=== PATIENT | female | born 1975 | race Hispanic/Latino ===

== ENCOUNTER 2020-12-05 14:38 | Observation (INO) | payer OTHER ==
[2020-12-05] VITALS (8 sets, daily range): BP systolic 120–146; BP diastolic 67–86
[~2020-12-05] VITALS: Ht 157.5 cm; Wt 63.4 kg
[2020-12-05] MEDS ORDERED: 0.9%NACL 1000ML 1,000 ML IV ONE (15:00)
[2020-12-05 15:09] LABS: BASOPHILS % (AUTO) 0.3 % (0.0-5.0); EOSINOPHILS % (AUTO) 0.2 % (0.0-8.0); HEMATOCRIT 35.4 % (36-48); MEAN CORPUSCULAR HEMOGLOBIN 33.4 pg (27.0-33.0); MEAN CORPUSCULAR VOLUME 95.4 fL (79-99); MONOCYTES % (AUTO) 7.5 % (3.0-13.0); NEUTROPHILS % (AUTO) 78.6 % (40.0-77.0); PLATELET COUNT (AUTO) 224 K/uL (130-400); RED BLOOD CELL COUNT(AUTO) 3.71 MIL/uL (4.00-5.50); RED CELL DISTRIBUTION WIDTH 12.1 % (11.0-15.5); WHITE BLOOD COUNT (AUTO) 11.3 K/uL (4.8-10.8)
[2020-12-05 15:32] LABS: CREATININE 0.8 mg/dL (0.5-1.5); POTASSIUM 4.5 mmol/L (3.5-5.1)
[2020-12-05 15:43] LABS: ALBUMIN 3.8 g/dL (3.5-5.0); BILIRUBIN,TOTAL 0.3 mg/dL (0.2-1.0); TOTAL PROTEIN, SERUM 7.2 g/dL (6.0-8.3); TROPONIN I 0.11 ng/mL (0.00-0.06)
[2020-12-05 15:53] LABS: APPEARANCE,URINE Clear (CLEAR); BILIRUBIN,URINE Negative (NEGATIVE); COLOR,URINE Yellow (YELLOW); GLUCOSE, URINE (UA) TRACE mg/dL (NEGATIVE); KETONES,URINE Negative (NEGATIVE); LEUKOCYTE ESTERASE ,URINE Negative (NEGATIVE); NITRATE,URINE Negative (NEGATIVE); OCCULT BLOOD,URINE Negative (NEGATIVE); PH,URINE 6.5 (5.0-8.0); PROTEIN,URINE Negative (NEGATIVE); UROBILINOGEN,URINE 0.2 mg/dL (0.2-1.0)
[2020-12-05 15:55] LABS: HCG,QUAL RESULT NEGATIVE (NEGATIVE)
[2020-12-05] MEDS ORDERED: NITROGLYCERIN 1GM OINT 1 INCH/1GM TD ONE (16:00)
[2020-12-05] MEDS ORDERED: ASPIRIN 325MG TAB PO ONE (16:00)
[2020-12-05 16:05] LABS: BACTERIA,URINE Rare /HPF (None Seen); RBC,URINE 0-1 /HPF (0-1); SQUAMOUS EPITHELIAL CELL,UR Rare /HPF (0-2); WBC,URINE 0-1 /HPF (0-1)
[2020-12-05] MEDS ORDERED: 0.9%NACL 1000ML 1,000 ML IV SCH (17:30)
[2020-12-05 17:50] LABS: HEMOGLOBIN A1C 5.5 % (4.0-6.0)
[2020-12-05 19:31] LABS: POTASSIUM 4.4 mmol/L (3.5-5.1)
[2020-12-05 19:32] LABS: CREATININE 0.7 mg/dL (0.5-1.5)
[2020-12-05 19:53] LABS: AMPHET/METH SCREEN,URINE NEGATIVE (NEGATIVE); BARBITURATE SCREEN, URINE NEGATIVE (NEGATIVE); BENZODIAZEPINES SCREEN,URINE NEGATIVE (NEGATIVE); CANNABINOID SCREEN,URINE NEGATIVE (NEGATIVE); COCAINE SCREEN,URINE NEGATIVE (NEGATIVE); OPIATE SCREEN,URINE NEGATIVE (NEGATIVE); PHENCYCLIDINE SCREEN,URINE NEGATIVE (NEGATIVE)
[2020-12-05 20:00] LABS: THYROID STIMULATING HORMONE 0.61 uIU/mL (0.36-3.74)
[2020-12-06 04:10] VITALS: BP 117/70
[2020-12-06 05:36] LABS: BASOPHILS % (AUTO) 0.5 % (0.0-5.0); EOSINOPHILS % (AUTO) 1.9 % (0.0-8.0); HEMATOCRIT 34.1 % (36-48); LYMPHOCYTES % (AUTO) 36.8 % (21.0-51.0); MEAN CORPUSCULAR HEMOGLOBIN 32.7 pg (27.0-33.0); MEAN CORPUSCULAR VOLUME 96.1 fL (79-99); MONOCYTES % (AUTO) 9.8 % (3.0-13.0); NEUTROPHILS % (AUTO) 50.9 % (40.0-77.0); PLATELET COUNT (AUTO) 232 K/uL (130-400); RED BLOOD CELL COUNT(AUTO) 3.55 MIL/uL (4.00-5.50); RED CELL DISTRIBUTION WIDTH 12.6 % (11.0-15.5); WHITE BLOOD COUNT (AUTO) 7.5 K/uL (4.8-10.8)
[2020-12-06 05:44] LABS: CREATININE 0.7 mg/dL (0.5-1.5); POTASSIUM 4.1 mmol/L (3.5-5.1)
[2020-12-06 07:00] VITALS: BP 120/81
[2020-12-06] MEDS ORDERED: ASPIRIN 81MG CHEW TAB PO SCH (09:00)
[2020-12-06 11:00] VITALS: BP 117/77
[2020-12-06] MEDS ORDERED: ASPI-1005 PO (12:07)
== END 2020-12-06 14:21 | disposition home or self-care (01) ==
LOC: EDH 14:38 → EDHIP 17:19 → 3DH 19:51
PROVIDERS: ADMIT Internal Medicine; ATTEND Internal Medicine
DX: I24.9 Acute ischemic heart disease, unspecified (principal); E87.1 Hypo-osmolality and hyponatremia; E86.0 Dehydration; T67.5XXA Heat exhaustion, unspecified, initial encounter; E86.1 Hypovolemia; D72.829 Elevated white blood cell count, unspecified; R77.8 Other specified abnormalities of plasma proteins; R79.89 Other specified abnormal findings of blood chemistry; Z98.51 Tubal ligation status; Z79.82 Long term (current) use of aspirin; Z79.899 Other long term (current) drug therapy; X30.XXXA Exposure to excessive natural heat, initial encounter
CPT/HCPCS: 36415 ×2; 70450; 71045; 80048 ×2; 80053; 80061; 80305; 81001; 81025; 82550 ×2; 83036; 83874; 84300; 84443; 84484 ×3; 85025 ×2; 93005; 96360; 96361 ×2; 99285; G0378 ×21; J7030 ×2

== ENCOUNTER 2022-08-10 07:40 | Day surgery (SDC) | payer OTHER ==
[2022-08-05 10:15] LABS: BASOPHILS % (AUTO) 0.8 % (0.0-5.0); EOSINOPHILS % (AUTO) 1.9 % (0.0-8.0); HEMATOCRIT 34.3 % (36-48); LYMPHOCYTES % (AUTO) 42.5 % (21.0-51.0); MEAN CORPUSCULAR HEMOGLOBIN 26.9 pg (27.0-33.0); MEAN CORPUSCULAR HGB CONC 31.5 g/dL (32.0-36.0); MEAN CORPUSCULAR VOLUME 85.5 fL (79-99); NEUTROPHILS % (AUTO) 44.4 % (40.0-77.0); PLATELET COUNT (AUTO) 302 K/uL (130-400); RED BLOOD CELL COUNT(AUTO) 4.01 MIL/uL (4.00-5.50); RED CELL DISTRIBUTION WIDTH 14.3 % (11.0-15.5); WHITE BLOOD COUNT (AUTO) 4.8 K/uL (4.8-10.8)
[2022-08-05 10:27] LABS: CREATININE 0.8 mg/dL (0.5-1.5); POTASSIUM 4.1 mmol/L (3.5-5.1)
[2022-08-05 10:54] VITALS: BP 119/60
[~2022-08-10] VITALS: Ht 160 cm; Wt 65.3 kg
[2022-08-10] VITALS (15 sets, daily range): BP systolic 96–146; BP diastolic 52–78
[2022-08-10] MEDS ORDERED: LACTATED RINGERS 1000ML 1,000 ML IV ONE (08:05)
[2022-08-10] MEDS ORDERED: MIDAZOLAM HCL 1 MG/ML 2ML VIAL ONE (08:53)
[2022-08-10] MEDS ORDERED: ONDANSETRON 4MG INJ ONE (08:53)
[2022-08-10] MEDS ORDERED: DEXAMETHASONE SOD PHOSPHATE 4 MG/ML 1ML VIAL ONE (08:53)
[2022-08-10] MEDS ORDERED: LIDOCAINE PF 100MG/5ML (2%) SYRINGE 5ML ONE (08:53)
[2022-08-10] MEDS ORDERED: PROPOFOL 10 MG/ML 20ML VIAL IV ONE (08:53)
[2022-08-10] MEDS ORDERED: FENTANYL CITRATE PF 50 MCG/1 ML 2ML VIAL ONE (08:53)
[2022-08-10] MEDS ORDERED: KETOROLAC 30MG VIAL (30MG/ML) ONE (09:24)
== END 2022-08-10 11:30 | disposition home or self-care (01) ==
LOC: DAH 07:40
PROVIDERS: ATTEND Obstetrics & Gynecology
DX: N92.0 Excessive and frequent menstruation with regular cycle (principal); Z20.822 Contact with and (suspected) exposure to COVID-19; N85.4 Malposition of uterus; Z98.51 Tubal ligation status; Z98.890 Other specified postprocedural states; Z83.42 Family history of familial hypercholesterolemia; Z82.61 Family history of arthritis; Z82.62 Family history of osteoporosis; Z83.438 Family history of other disorder of lipoprotein metabolism and other lipidemia
CPT/HCPCS: 80048; 84703; 85025; 87426; 36415; 58563; 81025; J1100; A4663; J7030; A4351; J7120; J3010; J2001; J2250; J2704; J2405; J1885; A4215; A4223; A4222; A4221